=== PATIENT | male | born 1960 | race Caucasian/White ===

== ENCOUNTER 2024-05-21 16:13 | Emergency (ER) | payer SELFPAY ==
[~2024-05-21] VITALS: Ht 175.3 cm; Wt 77.1 kg
[~2024-05-21 16:13] MED LIST: DOCU100 PO; MIRALAX17 GM PO; Norco 5-325 Ta1 EACH PO
== END 2024-05-21 18:40 | disposition home or self-care (01) ==
LOC: ER 16:13
DX: S42.142A Displaced fracture of glenoid cavity of scapula, left shoulder, initial encounter for closed fracture (principal); V89.2XXA Person injured in unspecified motor-vehicle accident, traffic, initial encounter; Z79.899 Other long term (current) drug therapy
CPT/HCPCS: 73030; 99283-25